=== PATIENT | female | born 1985 | race Caucasian/White ===

== ENCOUNTER 2018-03-25 23:16 | Emergency (ER) | payer MEDICAID ==
[2018-03-25 23:23] VITALS: BP 141/84
--- NOTE | 2018-03-25 23:30 | EDPHY ---
H & P Stated Complaint: dysuria, hematuria and abdominal pain . Nausea Time Seen by Provider: 03/25/18 23:30 HPI/ROS: HPI CHIEF COMPLAINT: Dysuria, hematuria, urinary frequency. HISTORY OF PRESENT ILLNESS: Very pleasant 32-year-old female, otherwise healthy , presents emergency room with urinary frequency, dysuria and hematuria. She states yesterday she started noticing urinary frequency. Today she had worsening dysuria noticed some blood in it. Pain is located suprapubic region. Some very mild low back pain. She denies any fever, denies nausea, denies vomiting. Patient denies any chest pain shortness of breath. Past Medical History: Denies significant medical history Past Surgical History: Denies significant surgical history Social History: Denies drugs alcohol tobacco. Family History: Noncontributory ROS REVIEW OF SYSTEMS: 10 Systems were reviewed and negative with the exception of the elements mentioned in the history of present illness. Exam Constitutional appears well nontoxic no acute distress triage nursing summary reviewed, vital signs reviewed, awake/alert. Eyes normal conjunctivae and sclera, EOMI, PERRLA. HENT normal inspection, atraumatic, moist mucus membranes, no epistaxis, neck supple/ no meningismus, no raccoon eyes. Respiratory clear to auscultation bilaterally, normal breath sounds, no respiratory distress, no wheezing. Cardiovascular rate normal, regular rhythm, no murmur, no edema, distal pulses normal. Gastrointestinal mild suprapubic tenderness., no rebound, no guarding, normal bowel sounds, no distension, no pulsatile mass. Genitourinary no CVA tenderness. Musculoskeletal no midline vertebral tenderness, full range of motion, no calf swelling, no tenderness of extremities, no meningismus, good pulses, neurovascularly intact. Skin pink, warm, & dry, no rash, skin atraumatic. Neurologic awake, alert and oriented x 3, AAOx3, moves all 4 extremities equally, motor intact, sensory intact, CN II-XII intact, normal cerebellar, normal vision, normal speech. Psychiatric normal mood/affect. Heme/Lymph/Immune no lymphadenopathy. Differential diagnosis includes but is not limited to and in no particular order : Bowel obstruction, appendicitis, gallbladder disease, diverticulitis, colitis , enteritis, perforated viscus, gastritis, GERD, esophagitis, urinary tract infection, pyelonephritis, kidney stones Medical Decision Making: Plan for this patient check UA, urine test. Tylenol Motrin for pain control. Re-evaluation: Urinalysis reviewed shows UTI. Plan for Keflex here in emergency room. Peridium. Tylenol Motrin for pain control. Source: Patient - Personal History LMP (Females 10-55): 8-14 Days Ago Current Tetanus/Diphtheria Vaccine: Yes Current Tetanus Diphtheria and Acellular Pertussis (TDAP): Yes - Medical/Surgical History Hx Asthma: No Hx Chronic Respiratory Disease: No Hx Diabetes: No Hx Cardiac Disease: No Hx Renal Disease: No Hx Cirrhosis: No Hx Alcoholism: No Hx HIV/AIDS: No Hx Splenectomy or Spleen Trauma: No Other PMH: depression,. anxiety - Social History Smoking Status: Never smoked Constitutional: Initial Vital Signs Temperature (C) 37.4 C 03/25/18 23:17 Heart Rate 94 03/25/18 23:17 Respiratory Rate 18 03/25/18 23:17 Blood Pressure 141/84 H 03/25/18 23:17 O2 Sat (%) 97 03/25/18 23:17 O2 Delivery Mode Room Air Allergies/Adverse Reactions: No Known Allergies Allergy (Verified 08/12/11 19:07) Home Medications: Medication Instructions Recorded Bcp 08/12/11 Cephalexin [Keflex] 500 mg PO Q6H #28 cap 03/25/18 Phenazopyridine HCl [Pyridium] 200 mg PO TID #15 tab 03/25/18 Prozac 10 MG (*) 03/25/18 Medical Decision Making - Data Points Laboratory Results: 03/25/18 03/25/18 23:24 23:24 Urine Color JOI Urine Appearance MODERATELY TURBID Urine pH 5.0 (5.0-7.5) Ur Specific [place] 1.019 (1.002-1.030) Urine Protein 2+ H (NEGATIVE) Urine Ketones 1+ H (NEGATIVE) Urine Blood 3+ H (NEGATIVE) Urine Nitrate NEGATIVE (NEGATIVE) Urine Bilirubin NEGATIVE (NEGATIVE) Urine Urobilinogen NEGATIVE EU EU (0.2-1.0) Ur Leukocyte Esterase 2+ H (NEGATIVE) Urine RBC 50-182 /hpf H /hpf (0-3) Urine WBC 50-182 /hpf H /hpf (0-3) Ur Epithelial Cells TRACE /lpf /lpf (NONE-1+) Urine Mucus 2+ /lpf H /lpf (NONE-1+) Urine Glucose NEGATIVE (NEGATIVE) Urine Test NEGATIVE Medications Given: Discontinued Medications Acetaminophen (Tylenol) 1,000 mg PO EDNOW ONE Stop: 03/25/18 23:33 Last Admin: 03/25/18 23:47 Dose: 1,000 mg Cephalexin (Keflex 500 Mg Prepack#4) 1 btl TAKEHOME EDNOW ONE PRN Reason: Protocol Stop: 03/25/18 23:40 Last Admin: 03/25/18 23:48 Dose: 1 btl Cephalexin HCl (Keflex) 500 mg PO EDNOW ONE PRN Reason: Protocol Stop: 03/25/18 23:40 Last Admin: 03/25/18 23:47 Dose: 500 mg Ibuprofen (Motrin) 800 mg PO EDNOW ONE Stop: 03/25/18 23:33 Last Admin: 03/25/18 23:47 Dose: 800 mg Phenazopyridine HCl (Pyridium) 200 mg PO EDNOW ONE Stop: 03/25/18 23:40 Last Admin: 03/25/18 23:47 Dose: 200 mg Departure - Departure Disposition: Home, Routine, Self-Care Clinical Impression: Urinary tract infection Qualifiers: Urinary tract infection type: acute cystitis Hematuria presence: with hematuria Qualified Code(s): N30.01 - Acute cystitis with hematuria Condition: Good Instructions: Cephalexin (By mouth), Urinary Tract Infection in Women (ED) Additional Instructions: 1. Drink lots of fluids stay well-hydrated 2. Antibiotics as prescribed. 3. Return if worsening pain, fever, vomiting or not doing well. Referrals: Gracie Valdez DO [Primary Care Provider] - As per Instructions Prescriptions: Cephalexin [Keflex] 500 mg PO Q6H #28 cap Phenazopyridine HCl [Pyridium] 200 mg PO TID #15 tab
[2018-03-25] MEDS ORDERED: IBUPROFEN 800 MG TAB PO ONE (23:32)
[2018-03-25] MEDS ORDERED: ACETAMINOPHEN 500 MG TAB PO ONE (23:32)
[2018-03-25] MEDS ORDERED: CEPHALEXIN 500 MG CAP PO ONE (23:39)
[2018-03-25] MEDS ORDERED: PHENAZOPYRIDINE HCL 200 MG TAB PO ONE (23:39)
[2018-03-25] MEDS ORDERED: CEPHALEXIN 500MG PREPACK#4 BTL TAKEHOME ONE (23:39)
== END 2018-03-25 23:54 | disposition home or self-care (01) ==
DX: N30.01 Acute cystitis with hematuria (principal)